=== PATIENT | female | born 1955 | race African-American/Black ===

== ENCOUNTER → 2016-09-25 | Outpatient (CLI) | payer MEDICARE ==
--- NOTE | 2016-09-25 16:23 | RAD ---
CHEST PA LATERAL Clinical Indication: NECK, LEFT SHOULDER AND CHEST PAIN X 6 MTHS Comparison: Right shoulder radiographs dated 08/08/2015 Findings: Low lung volume. No focal consolidations. Normal pulmonary vasculature. No pleural effusion or pneumothorax. Borderline cardiomegaly. Slightly tortuous thoracic aorta. No acute osseous abnormality. Remote right humeral head fracture. Unchanged right AC joint separation. Mild multilevel degenerative changes of the visualized spine. IMPRESSION: 1. No acute cardiopulmonary process. 2. Borderline cardiomegaly.
--- NOTE | 2016-09-25 16:26 | RAD ---
CERVICAL SPINE 5V (AP, lateral, odontoid, bilateral oblique) Clinical Indication: NECK, LEFT SHOULDER AND CHEST PAIN X 6 MTHS Comparison: None. Findings: The cervical spine is visualized to the level of C7. Mild straightening of the normal cervical lordosis. No listhesis. Vertebral body heights are maintained. Mild multilevel degenerative changes of the visualized spine. The dens is intact. No significant soft tissue abnormality. IMPRESSION: 1. No acute fracture or malalignment. 2. Mild multilevel degenerative changes of the visualized spine.
--- NOTE | 2016-09-25 16:28 | RAD ---
SHOULDER 2+V LEFT Clinical Indication: NECK, LEFT SHOULDER AND CHEST PAIN X 6 MTHS Comparison: None. Findings: No acute fracture or malalignment. Mild acromioclavicular joint arthrosis. Bony mineralization is normal for the patient's age. No significant soft tissue abnormality. IMPRESSION: 1. No acute fracture or malalignment. 2. Mild AC joint arthrosis.
== END | disposition home or self-care (01) ==
LOC: DXRADRC 10:36
PROVIDERS: ATTEND Internal Medicine
DX: M19.012 Primary osteoarthritis, left shoulder (principal); R07.9 Chest pain, unspecified; M54.2 Cervicalgia
CPT/HCPCS: 71020; 72050; 73030

== ENCOUNTER → 2020-03-03 | Outpatient (CLI) | payer MEDICARE ==
--- NOTE | 2020-03-03 11:44 | RAD ---
Examination: CT ABDOMEN+PELVIS WO History: SEVERE ABD PAIN, PANCREATITIS VS DIVERTICULITIS / NO CONTRAST PER DR VALLECILLO Comparison/Correlation: None Findings: Axial images of the abdomen and pelvis were obtained without IV or oral contrast. Lung bases are clear. Liver, spleen, pancreas, adrenal glands, and kidneys are unremarkable. No hydro nephrosis. No radiopaque collecting system calculi. Urinary bladder is mostly decompressed. A few small calculi are present within the gallbladder. No biliary dilatation or surrounding inflamma tory finding. No extraluminal gas. Appendix is normal. No bowel obstruction. No inflammatory findings about the bow el. No ascites or pelvic free fluid. Hysterectomy noted. Hyperdense ovoid structure on the left at th e level of the liver is present measuring 2.3 cm x 2.1 cm. Vacuum disc phenomenon at L4-5 and L5-S1. Concentric disc bulge noted at these levels. Disc space justo rowing at L3-4 with concentric disc bulge. Impression: Cholelithiasis. No acute process. No inflammatory findings about the pancreas or involving the bowel. Left Bartholin gland cyst which is hyperdense. This may represent proteinaceous or hemorrhagic compon ent. PQRS Compliance Statement: One or more of the following individualized dose reduction techniques were utilized for this examinat ion: 1. Automated exposure control 2. Adjustment of the mA and/or kV according to patient size 3. Use of iterative reconstruction technique Electronically signed by: Heladio Pineda MD (03/03/2020 11:42 AM) [id number]
== END ==
LOC: CT 10:28
PROVIDERS: ATTEND Internal Medicine
DX: K80.20 Calculus of gallbladder without cholecystitis without obstruction (principal); N75.0 Cyst of Bartholin's gland
CPT/HCPCS: 74176

== ENCOUNTER → 2020-03-15 | Outpatient (CLI) | payer MEDICARE ==
--- NOTE | 2020-03-15 09:55 | RAD ---
Right upper quadrant ultrasound without comparison for gallstones. TECHNIQUE AND FINDINGS: Real-time grayscale and color Doppler evaluation of the right upper quadrant abdominal organs is performed. The liver measures 15.2 cm is normal in appearance with no focal paren chymal abnormalities. Portal vein is patent and hepatopedal. Common bile duct measures 1.3 mm. Gallbl adder is free of any shadowing stones or sludge. There is a 4 mm fundal abnormality which is nonshado wing, and most consistent with a small polyp. No sonographic Squires sign was elicited. The right kidn ey measures 10.1 x 4.6 cm and is normal in appearance. The pancreas is obscured by overlying bowel ga s. The IVC is patent. IMPRESSION: 1. 4 mm gallbladder polyp. No evidence of acute cholecystitis. Electronically signed by: Cayden Brooks MD (03/15/2020 9:53 AM) [id number]
== END ==
LOC: US 08:54
PROVIDERS: ATTEND Internal Medicine
DX: K82.4 Cholesterolosis of gallbladder (principal)
CPT/HCPCS: 76700